=== PATIENT | female | born 1970 | race Caucasian/White ===

== ENCOUNTER → 2017-12-14 | Day surgery (SDC) | payer BC ==
[2017-12-11 17:19] LABS: BASOPHILS % 0.5 % (0.0-1.0); EOSINOPHILS # (AUTO) 0.1 (0.0-0.4); EOSINOPHILS % 0.9 % (0.0-6.0); HEMATOCRIT 40.8 % (34.2-44.1); HEMOGLOBIN 13.3 g/dL (12.0-16.0); LYMPHOCYTES # (AUTO) 3.7 (1.0-3.2); LYMPHOCYTES % 42.1 % (18.0-39.1); MEAN CORPUSCULAR HEMOGLOBIN 30.5 pg (28-32); MEAN CORPUSCULAR HGB CONC 32.6 g/dL (31-35); MEAN CORPUSCULAR VOLUME 93.6 fL (81-99); MONOCYTES # (AUTO) 0.9 (0.2-0.8); MONOCYTES % 9.6 % (4.4-11.3); NEUTROPHILS # (AUTO) 4.1 (2.1-6.9); NEUTROPHILS % 46.7 % (38.7-80.0); PLATELET COUNT 352 x10e3/uL (140-360); RED BLOOD COUNT 4.36 x10e6/uL (3.6-5.1); RED CELL DISTRIBUTION WIDTH 12.8 % (11.7-14.4)
[2017-12-11 17:37] LABS: ALANINE AMINOTRANSFERASE 34 IU/L (0-55); ALBUMIN 3.9 g/dL (3.5-5.0); ALBUMIN/GLOBULIN RATIO 1.4 (0.8-2.0); ALKALINE PHOSPHATASE 81 IU/L (40-150); ANION GAP 14.8 mmol/L (8-16); BLOOD UREA NITROGEN 11 mg/dL (7-26); BUN/CREATININE RATIO 14 (6-25); CALCIUM 10.2 mg/dL (8.4-10.2); CARBON DIOXIDE 24 mmol/L (22-29); CHLORIDE 105 mmol/L (98-107); CREATININE, SERUM 0.78 mg/dL (0.57-1.11); EST GLOMERULAR FILTRATION RATE > 60 ML/MIN (60-); GLUCOSE 90 mg/dL (74-118); POTASSIUM 3.8 mmol/L (3.5-5.1); SODIUM 140 mmol/L (136-145)
[2017-12-11 17:39] LABS: INR 0.84; PROTHROMBIN TIME 12.3 seconds (11.9-14.5)
[~2017-12-14] MED LIST: ACETAMINOPHEN 1000 MG/100 ML IV ONE; AMOXICILLIN; APAP/CODEINE; ASPIR-LOW81 MG; AUGMENTIN 875-1 EACH PO; BUPIVACAINE HCL 0.5% INJ 30 ML VIAL INJ ONE; CALTRATE 600 W1 EACH; CEFAZOLIN SOD 1 GM VIAL ONE; CYCLOBENZAPRINE10 MG PO; DEXAMETHASONE SOD PHOS INJ 4 MG/ML VIAL ONE; EPINEPHRINE HCL INJ 1 MG/ML AMP ONE; FENTANYL CITRATE/PF 100MCG/2 ML INJ ONE; KETOROLAC TROMETHAMINE 30 MG/ML VIAL ONE; LIDOCAINE HCL 1% 30ML-PF VIAL ONE; LIDOCAINE HCL 2% LOCAL INJ 5 ML SDV VIAL INJ ONE; MIDAZOLAM HCL 2 MG/2 ML VIAL ONE; MORPHINE SULFATE 2 MG/ML SYR ONE; MULTI-VITAMIN1 EACH; ONDANSETRON HCL INJ 2 MG/ML VIAL ONE; PROPOFOL IV EMULSION 10 MG/ML 20 ML VIAL ONE; SEVOFLURANE INHAL SOLN 250 ML PEN BTL ONE; TAMOXIFEN PO; TYLENOL WITH C1 EACH PO; VENLAFAXINE H37.5 MG; VITAMIN D3400 UNIT
[2017-12-14 17:30] VITALS: BP 112/70
--- NOTE | 2018-01-14 19:28 | Operative Report ---
DATE OF PROCEDURE: January 14, 2018 PREOPERATIVE DIAGNOSES 1. History of breast cancer. 2. Acquired absence of bilateral breast. POSTOPERATIVE DIAGNOSES 1. History of breast cancer. 2. Acquired absence of bilateral breast. PROCEDURES PERFORMED 1. Bilateral nipple reconstruction. 2. Bilateral breast reconstruction with fat transfer, 65 mL of fat transferred to the right side and 90 mL of fat transferred to the left side. 3. Revision of bilateral breast reconstruction. ANESTHESIA: General endotracheal. INDICATIONS FOR SURGERY: This is a 47-year-old female who earlier this year was diagnosed with breast cancer and underwent bilateral mastectomies and immediate reconstruction with tissue expanders and AlloDerm. Patient is currently presenting for bilateral nipple reconstruction, bilateral breast reconstruction with fat transfer to both breasts, and revision of bilateral breast reconstruction. The risks, alternatives, and possible complications of the above procedure were explained to the patient. These include but are not limited to bleeding, infection, scarring, nipple or skin flap necrosis, breast asymmetry, wound dehiscence, failure of fat transfer, firmness or lumpiness, nipple asymmetry, skin irregularity, excessive skin fat necrosis, exposure or failure of silicone gel breast implants, deep venous thrombosis, pulmonary embolism, unsatisfactory aesthetic result, and possible need for further surgery. The patient had an opportunity to ask questions and have her questions answered and agreed to proceed with the proposed procedure. PROCEDURE IN DETAIL: The patient was marked in the preoperative holding area. She was then taken to the operating room and placed supine on the operating table. After adequate general anesthesia, the patient's bilateral breasts, abdomen, and bilateral flanks were prepped and draped in the usual surgical fashion. Attention was then turned first to the patient's breast. The location of nipples to be reconstructed was again confirmed and was previously agreed upon during the preoperative visit and also in preop holding. The breast marked for nipple reconstruction with fishtail flap. The length of the flap was approximately 2.5 cm and the width 1.5 cm. The flaps were carefully elevated with #15 blade ensuring that the blood supply remains intact. The donor site was closed with interrupted 3-0 Vicryl sutures. The 2 flaps were then wrapped around each other and sutured to each other with interrupted 5-0 Prolene sutures. Additional 5-0 Prolene sutures were placed along the donor site. Similar procedure was performed on the opposite breast. Revision of bilateral breast reconstruction was then also performed by excising dog ears on the patient's bilateral medial and lateral mastectomy incisions. The dog ears were excised with #15 blade. Hemostasis was achieved with the Bovie and wound closure was achieved with interrupted 3-0 Vicryl sutures and a running subcuticular 3-0 PDS suture. After completion of the revision of bilateral breast reconstruction, attention was turned to the patient's abdomen and flanks. This was the donor site for the patient's of fat transfer. Tumescent fluid was injected into the patient's abdomen through 2 small incisions in the suprapubic area. Approximately 1000 mL of tumescent were injected in the patient's abdomen and approximately 300 mL of tumescent were injected into each flank area. After adequate time was given for the tumescent act, suction-assisted lipectomy was undertaken with #3 mm cannula. 600 mL of aspirate were removed from the patient's abdomen and 200 mL of aspirate were removed from each flank area. The fat was then purified using the [employer] PureGraft purification system. A 65 mL of purified fat was transferred into the right breast mostly in the superomedial area and 90 mL of fat was transferred to the patient's left breast again mostly superior and medial area. The donor site incisions were closed with a single stitch of 5-0 chromic. At the end of the case, the patient's bilateral breasts appeared symmetric. Both of newly reconstructed nipples appeared viable. The nipples were covered with Xeroform and 4 x 4 with a cut out donut hole in order to protect as a splint the newly reconstructed nipple. The donor sites for the fat transfer were covered with ABD pads and a compression garment was placed on the patient. She tolerated the procedure well. There were no immediate complications. The needle and instrument count was correct at the end of the case and she was transferred, extubated to the recovery room. Job#: [id number] REX
== END | disposition home or self-care (01) ==
LOC: OR 10:34
PROVIDERS: ATTEND Plastic Surgery
DX: Z42.1 Encounter for breast reconstruction following mastectomy (principal); Z85.3 Personal history of malignant neoplasm of breast; Z90.13 Acquired absence of bilateral breasts and nipples; F41.9 Anxiety disorder, unspecified; Z01.812 Encounter for preprocedural laboratory examination; Z79.82 Long term (current) use of aspirin
CPT/HCPCS: 19350; 20926; 36415; 80053; 84702; 85025; 85610; 85730; 88305; J0171; J0690; J1100; J1885; J2001 ×2; J2250; J2270; J2405